=== PATIENT | male | born 1975 | race Caucasian/White ===

== ENCOUNTER 2017-03-28 20:18 | Emergency (ER) | payer MEDICARE, MEDICAID ==
[~2017-03-28] VITALS: Ht 170.2 cm; Wt 42.9 kg
[~2017-03-28 20:18] MED LIST: ALPR0.25 PO; AMIT10TA PO; ATEN25TA PO; CHLO25CA9 PO; DOXE50CA PO; HYDR-3138 PO; IBUP200T5 PO; MODA200T12 PO; NICO1PAT5 TD
[2017-03-28] MEDS ORDERED: AMIT10TA PO (20:42)
[2017-03-28] MEDS ORDERED: MORPHINE SULFATE 4 MG/ML, 1ML ONE (21:18)
[2017-03-28] MEDS ORDERED: ONDANSETRON 2MG/ML, 2ML ONE (21:19)
[2017-03-28] MEDS ORDERED: ONDANSETRON 2MG/ML, 2ML IVPush ONE (21:30)
[2017-03-28] MEDS ORDERED: MORPHINE SULFATE 4 MG/ML, 1ML IVPush PRN (21:30)
[2017-03-28] MEDS ORDERED: SODIUM CHLORIDE FLUSH 10ML SYR IVF ONE (21:30)
[2017-03-28 21:41] LABS: ASPARTATE AMINO TRANSFERASE 36 U/L (15-37); BLOOD UREA NITROGEN 7 mg/dL (7-18)
[2017-03-28 21:52] LABS: IS PT STATUS REG ER OR PRE ER? YES
[2017-03-28] MEDS ORDERED: MAALOX/HYOSCYAMINE/LIDOCAINE 45 ML BOTTLE ONE (22:56)
[2017-03-28] MEDS ORDERED: MAALOX/HYOSCYAMINE/LIDOCAINE 45 ML BOTTLE PO ONE (23:00)
[2017-03-28 23:05] VITALS: BP 140/100
== END 2017-03-28 23:07 | disposition home or self-care (01) ==
LOC: ED 23:01
DX: R07.89 Other chest pain (principal); K21.9 Gastro-esophageal reflux disease without esophagitis; I10 Essential (primary) hypertension
CPT/HCPCS: 36415; 71010; 80053; 84484; 85025; 93005; 96374; 96375; 99285; J2405

== ENCOUNTER 2018-01-18 17:32 | Emergency (ER) | payer MEDICARE, MEDICAID ==
[~2018-01-18] VITALS: Ht 172.7 cm; Wt 114.7 kg
[~2018-01-18 17:32] MED LIST changes: -HYDR-3138 PO; +HYDR-3237 PO; +IBUP-1484 PO; -IBUP200T5 PO; -MODA200T12 PO; +MODA200T27 PO; +NICO-487 TD; -NICO1PAT5 TD
[2018-01-18] MEDS ORDERED: ONDANSETRON ODT 8 MG ONE (22:27)
[2018-01-18 22:36] VITALS: BP 101/73
[2018-01-18] MEDS ORDERED: ONDANSETRON ODT 8 MG PO ONE (23:00)
== END 2018-01-18 22:45 | disposition home or self-care (01) ==
LOC: ED 21:50
DX: F10.220 Alcohol dependence with intoxication, uncomplicated (principal); K21.9 Gastro-esophageal reflux disease without esophagitis; I10 Essential (primary) hypertension; F32.9 Major depressive disorder, single episode, unspecified; Z88.6 Allergy status to analgesic agent; Z88.8 Allergy status to other drugs, medicaments and biological substances
CPT/HCPCS: 99283; Q0162